=== PATIENT | female | born 1980 | race Caucasian/White ===

== ENCOUNTER 2018-04-28 17:28 | Emergency (ER) | payer OTHER, MEDICAID ==
[2018-04-28] MEDS: ACETAMINOPHEN 500 MG TAB PO (20:31)
== END 2018-04-28 21:11 | disposition home or self-care (01) ==
LOC: FTE 17:28
DX: O26.892 Other specified pregnancy related conditions, second trimester (principal); R10.9 Unspecified abdominal pain; Z3A.15 15 weeks gestation of pregnancy
CPT/HCPCS: 76801; 99284-25

== ENCOUNTER 2018-07-23 13:00 | Outpatient (CLI) | payer OTHER ==
[2018-07-23 14:28] LABS: ADD UMIC YES; UR ASCORBIC ACID NEGATIVE (NEGATIVE); UR BACTERIA FEW /HPF (NONE SEEN); UR BILIRUBIN (Dip) NEGATIVE (NEGATIVE); UR BLOOD (Dip) 1+ mg/dL (NEGATIVE); UR CLARITY SLIGHTLY CLOUDY (CLEAR); UR COLOR YELLOW (YELLOW); UR GLUCOSE (Dip) NEGATIVE (NEGATIVE); UR KETONES (Dip) NEGATIVE (NEGATIVE); UR LEUKOCYTE ESTERASE (Dip) NEGATIVE Leu/ul (NEGATIVE); UR MUCUS FEW /HPF (NONE SEEN); UR NITRITE (Dip) NEGATIVE (NEGATIVE); UR RBC 6 /HPF (0-5); UR SPECIFIC GRAVITY (Dip) 1.023 (1.003-1.030); UR SQUAMOUS EPITHELIAL CELL FEW /HPF (FEW); UR TOTAL PROTEIN (Dip) NEGATIVE (NEGATIVE); UR UROBILINOGEN (Dip) 2+ mg/dL (NEGATIVE); UR WBC 2 /HPF (0-5)
== END 2018-07-23 15:41 | disposition home or self-care (01) ==
LOC: OBT 13:00 → L-D 13:01 → OBT 15:41
DX: O62.9 Abnormality of forces of labor, unspecified (principal); O09.522 Supervision of elderly multigravida, second trimester; Z3A.26 26 weeks gestation of pregnancy
CPT/HCPCS: 76817; 76818; 81001

== ENCOUNTER 2018-10-08 16:50 | Inpatient (IN) | payer OTHER ==
[2018-10-08] MEDS ORDERED: BUTORPHANOL 2 MG INJ IV ×2 (19:30)
[2018-10-08] MEDS ORDERED: MISOPROSTOL 200 MCG TAB PR (19:30)
[2018-10-08] MEDS ORDERED: CARBOPROST 250 MCG INJ IM (19:30)
[2018-10-08] MEDS ORDERED: LIDOCAINE 1% (MPF) 30 ML INJ INJ (19:30)
[2018-10-08] MEDS ORDERED: OXYTOCIN 30 UNITS/LR 500 ML IV (19:30)
[2018-10-08] MEDS ORDERED: METHYLERGONOVINE 0.2 MG INJ IM (19:30)
[2018-10-08] MEDS: LACTATED RINGER'S 1,000 ML IV (20:02)
[2018-10-08 20:09] LABS: ADD MAN DIFF? NO
[2018-10-08] MEDS ORDERED: AMPICILLIN 2 GM/NS (PMX) 100 ML (20:15)
[2018-10-08 20:16] LABS: WHITE BLOOD COUNT 11.1 10^3/ul (4.8-10.8)
[2018-10-08 20:16] LABS: RED BLOOD COUNT 4.19 10^6/ul (4.20-5.40)
[2018-10-08 20:17] LABS: BASOPHILS % 0.3 % (0.0-2.0); EOSINOPHILS % 0.9 % (0.0-7.0); HEMATOCRIT 39.3 % (37.0-47.0); HEMOGLOBIN 13.6 g/dl (12.0-16.0); LYMPHOCYTES % 20.7 % (15.0-51.0); MEAN CORPUSCULAR HEMOGLOBIN 32.5 pg (29.0-33.0); MEAN CORPUSCULAR HGB CONC 34.6 g/dl (32.0-37.0); MEAN CORPUSCULAR VOLUME 93.8 fl (82.0-101.0); MEAN PLATELET VOLUME 11.9 fl (7.4-10.4); MONOCYTES % 9.7 % (0.0-11.0); NEUTROPHIL # 7.6 10^3/ul (1.6-7.5); PLATELET COUNT 237 10^3/UL (140-415); RED CELL DISTRIBUTION WIDTH 13.3 % (11.5-14.5)
[2018-10-08] MEDS: AMPICILLIN 2 GM/NS (PMX) 100 ML IV (20:17)
[2018-10-08 20:18] LABS: LYMPHOCYTES # 2.3 10^3/ul (0.8-2.9); MONOCYTE # 1.1 10^3/ul (0.3-0.9)
[2018-10-08 20:46] LABS: INR 0.94; PARTIAL THROMBOPLASTIN TIME 26.4 Sec (23.0-35.0); PROTIME 12.7 Sec (11.9-14.9)
[2018-10-08 21:38] LABS: HEPATITIS B SURFACE ANTIGEN NEGATIVE (NEGATIVE)
[2018-10-09] MEDS: OXYTOCIN 30 UNITS/LR 500 ML IV ×2 (00:01→00:14)
[2018-10-09] MEDS: IBUPROFEN 600 MG TAB PO ×5 (00:29→23:43)
[2018-10-09] MEDS ORDERED: AMPICILLIN 1 GM/NS (PMX) 50 ML IV (00:30)
[2018-10-09] MEDS: DEXTROSE 5%-LR 1,000 ML IV ×3 (02:35→18:35)
[2018-10-09] MEDS ORDERED: DIBUCAINE 1% 30 GM OINT TOP (03:00)
[2018-10-09] MEDS ORDERED: DIPHENHYDRAMINE 50 MG INJ IV (03:00)
[2018-10-09] MEDS ORDERED: ZOLPIDEM 5 MG TAB PO (03:00)
[2018-10-09] MEDS ORDERED: METHYLERGONOVINE 0.2 MG INJ IM (03:00)
[2018-10-09] MEDS ORDERED: HYDROCODONE/APAP (5/325) TAB PO (03:00)
[2018-10-09] MEDS ORDERED: CARBOPROST 250 MCG INJ IM (03:00)
[2018-10-09] MEDS ORDERED: ONDANSETRON 4 MG INJ IV (03:00)
[2018-10-09] MEDS ORDERED: MAGNESIUM HYDROXIDE 30ML CUP PO (03:00)
[2018-10-09] MEDS ORDERED: MISOPROSTOL 200 MCG TAB PR (03:00)
[2018-10-09] MEDS ORDERED: OXYTOCIN 30 UNITS/LR 500 ML IV (03:00)
[2018-10-09] MEDS ORDERED: ACETAMINOPHEN 325 MG TAB PO (03:00)
[2018-10-09] MEDS: LACTATED RINGER'S 1,000 ML IV* ×3 (04:21→18:35)
[2018-10-09] MEDS: BENZOCAINE 20% 56 ML SPRAY TOP (08:22)
[2018-10-09] MEDS: WITCH HAZEL/GLYCERIN PAD PR (08:22)
[2018-10-09] MEDS: LANOLIN HPA 1 PKT TOP (08:22)
[2018-10-09] MEDS: SENNA/DOCUSATE NA (8.6MG/50MG) TAB PO (08:23)
[2018-10-09] MEDS: DIPHTH/TET/ACEL PERTUSS (ADULT) 0.5 ML VIAL IM* (16:00)
[2018-10-09 22:32] LABS: RAPID PLASMA REAGIN NONREACTIVE (NR)
[2018-10-10] MEDS: IBUPROFEN 600 MG TAB PO ×2 (05:36→12:01)
[2018-10-10 08:00] LABS: ADD MAN DIFF? NO
[2018-10-10 08:09] LABS: BASOPHIL # 0.1 10^3/ul (0.0-0.1); BASOPHILS % 0.5 % (0.0-2.0); EOSINOPHILS # 0.3 10^3/ul (0.0-0.5); EOSINOPHILS % 2.3 % (0.0-7.0); HEMATOCRIT 37.3 % (37.0-47.0); HEMOGLOBIN 12.8 g/dl (12.0-16.0); LYMPHOCYTES # 2.5 10^3/ul (0.8-2.9); LYMPHOCYTES % 21.2 % (15.0-51.0); MEAN CORPUSCULAR HEMOGLOBIN 33.1 pg (29.0-33.0); MEAN CORPUSCULAR HGB CONC 34.3 g/dl (32.0-37.0); MEAN CORPUSCULAR VOLUME 96.4 fl (82.0-101.0); MEAN PLATELET VOLUME 11.9 fl (7.4-10.4); MONOCYTE # 1.3 10^3/ul (0.3-0.9); MONOCYTES % 11.2 % (0.0-11.0); NEUTROPHIL # 7.5 10^3/ul (1.6-7.5); NEUTROPHILS % 64.5 % (39.0-77.0); PLATELET COUNT 228 10^3/UL (140-415); RED BLOOD COUNT 3.87 10^6/ul (4.20-5.40); RED CELL DISTRIBUTION WIDTH 13.6 % (11.5-14.5)
[2018-10-10 08:09] LABS: WHITE BLOOD COUNT 11.6 10^3/ul (4.8-10.8)
[2018-10-10] MEDS: MEDROXYPROGESTERONE 150 MG INJ SYG IM (12:27)
[2018-10-11] MEDS ORDERED: DIPHTH/TET/ACEL PERTUSS (ADULT) 0.5 ML VIAL IM* (09:00)
[2018-10-11] MEDS ORDERED: MEASLES,MUMPS,RUBELLA VACCINE INJ SC* (09:00)
== END 2018-10-10 14:05 | disposition home or self-care (01) | DRG 807 ==
LOC: OBT 16:50 → PP1 10-09 02:14 → L-D 16:50 → OBT 18:49 → L-D 18:49
PROVIDERS: Obstetrics & Gynecology
PROC: 10E0XZZ Delivery of Products of Conception, External Approach (ICD-10-PCS; principal; 2018-10-08)
DX: O80 Encounter for full-term uncomplicated delivery (principal); Z37.0 Single live birth; Z3A.37 37 weeks gestation of pregnancy
CPT/HCPCS: 85025; 85610; 85730; 86592; 86850; 86900; 86901; 87340; 90715